=== PATIENT | male | born 1945 | race Two or more races ===

== ENCOUNTER 2024-02-21 12:07 | Inpatient (IN) | payer OTHER ==
[~2024-02-21] VITALS: Ht 167.6 cm; Wt 61.8 kg
[2024-02-21] MEDS: GLUCAGON EMERG KIT 1mg/1ml IV ONE (13:22)
[2024-02-21 13:24] LABS: Basophils # (auto) 0.1 10 ^3/uL (0-0.2); Basophils % (auto) 0.7 % (0.0-2.0); Eosinophils # (auto) 0.2 10 ^3/uL (0-0.8); Eosinophils % (auto) 2.3 % (0.0-7.0); Hematocrit 36.5 % (41.0-53.0); Hemoglobin 12.8 g/dL (13.5-17.5); Lymphocytes # (auto) 1.8 10 ^3/uL (0.4-5.4); Mean Corpuscular Hemoglobin 30.5 pg (28.0-32.0); Mean Corpuscular Hgb Conc. 35.2 g/dL (32.0-36.0); Mean Corpuscular Volume 86.9 fL (80.0-100.0); Monocytes # (auto) 0.7 10 ^3/uL (0-1.3); Monocytes % (auto) 8.7 % (0.0-12.0); Neutrophils # (auto) 4.8 10 ^3/uL (1.6-8.6); Neutrophils % (auto) 64.3 % (37.0-80.0); Platelet Count (auto) 182 10^3/uL (140-450); Red Cell Distribution Width 13.9 % (11.8-14.3); White Blood Cell 7.5 10^3/uL (4.4-10.8)
[2024-02-21] MEDS: hydrALAZINE HCL 20 MG/ML VL IV ONE (13:30)
[2024-02-21 13:33] LABS: Alanine Aminotransferase 22 U/L (7-40); Albumin 4.1 g/dL (3.2-4.8); Alkaline Phosphatase 53 U/L (46-116); Anion Gap 6 (5-15); Aspartate Aminotransferase 14 U/L (13-40); BUN/Creatinine Ratio 14.7 (10.0-20.0); Blood Urea Nitrogen 16 mg/dL (9-23); Calcium 9.9 mg/dL (8.7-10.4); Carbon Dioxide 28 mmol/L (20-31); Chloride 104 mmol/L (98-107); Glucose 201 mg/dL (74-106); Potassium 5.1 mmol/L (3.5-5.1); Sodium 138 mmol/L (136-145); Total Protein 6.7 g/dL (5.7-8.2)
[2024-02-21 13:55] VITALS: PULSE 42; RESP 12; O2SAT 98
[2024-02-21 14:19] LABS: Magnesium 1.7 mg/dL (1.6-2.6)
[2024-02-21] MEDS: MAGNESIUM SULFATE 1GM/100ML 100 ML IV ONE (15:35)
[2024-02-21 16:18] LABS: Urine Bacteria None Seen /hpf (None Seen)
[2024-02-21 16:31] LABS: Urine Blood Negative /uL (Negative); Urine Clarity Clear (Clear); Urine Color Light-Yellow (Yellow); Urine Protein, UAD Negative (Negative); Urine Specific Gravity 1.014 (1.001-1.035); Urine Urobilinogen Normal (Negative); Urine WBC <1 /hpf (0 - 3)
[2024-02-21 19:50] VITALS: PULSE 32; RESP 13; O2SAT 99
[2024-02-21] MEDS ORDERED: NITROGLYCERIN 0.4 MG SL TAB SL PRN (23:45)
[2024-02-21] MEDS ORDERED: MORPHINE SULFATE INJ 2 MG/ml SYRG IV PRN (23:45)
[2024-02-22] VITALS (9 sets, daily range): BP systolic 148–187; BP diastolic 69–87; PULSE 32–75; RESP 14–18; TEMP 97.8–98.7; O2SAT 97–100
[2024-02-22] MEDS ORDERED: DEXTROSE (50%) 50ML SYRG IV PRN (00:45)
[2024-02-22] MEDS ORDERED: ATROPINE SULF 1 MG/10ml SYR IV ONE (01:00)
[2024-02-22] MEDS: ACCU-CHEK COMFORT CURVE STRIP VI SCH (04:00)
[2024-02-22] MEDS: InsuLIN REG 1unit/0.01ml Soln (100units/ml) SC SCH (04:00)
[2024-02-22 07:05] LABS: Chloride 107 mmol/L (98-107); Potassium 5.3 mmol/L (3.5-5.1); Sodium 137 mmol/L (136-145)
[2024-02-22 07:06] LABS: Anion Gap 6 (5-15); Calcium 9.9 mg/dL (8.7-10.4); Carbon Dioxide 24 mmol/L (20-31)
[2024-02-22 07:11] LABS: BUN/Creatinine Ratio 12.7 (10.0-20.0); Blood Urea Nitrogen 14 mg/dL (9-23); Glucose 152 mg/dL (74-106)
[2024-02-22 07:16] LABS: Basophils # (auto) 0.1 10 ^3/uL (0-0.2); Basophils % (auto) 0.8 % (0.0-2.0); Eosinophils # (auto) 0.3 10 ^3/uL (0-0.8); Eosinophils % (auto) 3.7 % (0.0-7.0); Hematocrit 36.9 % (41.0-53.0); Hemoglobin 12.9 g/dL (13.5-17.5); Lymphocytes # (auto) 2.2 10 ^3/uL (0.4-5.4); Lymphocytes % (auto) 27.9 % (10.0-50.0); Mean Corpuscular Hemoglobin 30.6 pg (28.0-32.0); Mean Corpuscular Volume 87.5 fL (80.0-100.0); Monocytes # (auto) 0.7 10 ^3/uL (0-1.3); Monocytes % (auto) 8.3 % (0.0-12.0); Neutrophils # (auto) 4.7 10 ^3/uL (1.6-8.6); Neutrophils % (auto) 59.3 % (37.0-80.0); Platelet Count (auto) 178 10^3/uL (140-450); Red Blood Cells 4.22 10^6/uL (4.5-5.90); Red Cell Distribution Width 13.9 % (11.8-14.3)
[2024-02-22 09:14] LABS: INR 1.17 (0.9-1.15); Partial Thromboplastin Time 27.5 SEC (24.5-34.5); Prothrombin Time 12.3 sec (9.3-11.8)
[2024-02-22] MEDS ORDERED: ASPirin 81 mg TAB PO SCH (10:00)
[2024-02-22] MEDS: hydrALAZINE HCL 20 MG/ML VL IV PRN (15:43)
[2024-02-22] MEDS: LIDOCAINE 2%HCL (LOCAL ANESTH.) INJ 20ML MDV ONE (16:10)
[2024-02-22] MEDS: fentaNYL CITRATE 100 MCG/2 ML VL ONE (16:11)
[2024-02-22] MEDS: MIDAZOLAM HCL 2MG/2ML 2ml VIAL (1mg/ml) ONE (16:11)
[2024-02-22] MEDS: VANCOMYCIN HCL 1000 MG VL ONE ×2 (17:05→18:52)
[2024-02-22] MEDS: VANCOMYCIN 1GM/250ML 200 ML IV ONE (17:05)
[2024-02-22] MEDS: ATORVASTATIN 20 MG TAB PO SCH (21:43)
[2024-02-23] VITALS (7 sets, daily range): BP systolic 146–173; BP diastolic 62–101; PULSE 61–73; RESP 14–18; TEMP 98.2–98.8; O2SAT 95–98
[2024-02-23] MEDS ORDERED: DEXTROSE (50%) 50ML SYRG IV PRN (07:00)
[2024-02-23 08:35] LABS: Anion Gap 9 (5-15); Carbon Dioxide 24 mmol/L (20-31); Chloride 107 mmol/L (98-107); Sodium 140 mmol/L (136-145)
[2024-02-23 08:37] LABS: Calcium 9.6 mg/dL (8.7-10.4)
[2024-02-23 08:42] LABS: BUN/Creatinine Ratio 10.7 (10.0-20.0); Blood Urea Nitrogen 9 mg/dL (9-23); Glucose 107 mg/dL (74-106)
[2024-02-23 08:43] LABS: Basophils # (auto) 0.1 10 ^3/uL (0-0.2); Eosinophils # (auto) 0.2 10 ^3/uL (0-0.8); Eosinophils % (auto) 3.1 % (0.0-7.0); Hemoglobin 13.4 g/dL (13.5-17.5); Lymphocytes % (auto) 25.8 % (10.0-50.0); Mean Corpuscular Hemoglobin 30.5 pg (28.0-32.0); Mean Corpuscular Hgb Conc. 35.2 g/dL (32.0-36.0); Mean Corpuscular Volume 86.6 fL (80.0-100.0); Monocytes # (auto) 0.6 10 ^3/uL (0-1.3); Monocytes % (auto) 8.5 % (0.0-12.0); Neutrophils # (auto) 4.7 10 ^3/uL (1.6-8.6); Neutrophils % (auto) 61.6 % (37.0-80.0); Nucleated Red Blood Cells % 0.1 %; Platelet Count (auto) 178 10^3/uL (140-450); Red Blood Cells 4.38 10^6/uL (4.5-5.90); Red Cell Distribution Width 13.7 % (11.8-14.3); White Blood Cell 7.6 10^3/uL (4.4-10.8)
[2024-02-23] MEDS: ACCU-CHEK COMFORT CURVE STRIP VI SCH (13:12)
[2024-02-23] MEDS: InsuLIN REG 1unit/0.01ml Soln (100units/ml) SC SCH (13:13)
[2024-02-23] MEDS ORDERED: INSREG3 (13:26)
[2024-02-23] MEDS ORDERED: INSUINJ2 SC (13:26)
[2024-02-23] MEDS ORDERED: LISI-275 PO (13:26)
[2024-02-23] MEDS ORDERED: ATEN50TA PO (13:26)
[2024-02-23] MEDS ORDERED: METF-372 PO (13:26)
[2024-02-23] MEDS ORDERED: ATOR20TA50 PO (13:26)
[2024-02-23] MEDS ORDERED: DOXY1CAP57 PO (15:50)
[2024-02-23] MEDS ORDERED: InsuLIN REG 1unit/0.01ml Soln (100units/ml) SC SCH (22:00)
== END 2024-02-23 18:00 | disposition home or self-care (01) | DRG 242 ==
LOC: EDBD 12:07 → ER 12:12 → TELE 23:34 → TELE-WESTW 02-22 09:53
PROVIDERS: ADMIT Internal Medicine; ATTEND Internal Medicine
PROC: 0JH606Z Insertion of Pacemaker, Dual Chamber into Chest Subcutaneous Tissue and Fascia, Open Approach (ICD-10-PCS; principal; 2024-02-22)
PROC: 02H63JZ Insertion of Pacemaker Lead into Right Atrium, Percutaneous Approach (ICD-10-PCS; 2024-02-22)
PROC: 02HK3JZ Insertion of Pacemaker Lead into Right Ventricle, Percutaneous Approach (ICD-10-PCS; 2024-02-22)
PROC: B517YZZ Fluoroscopy of Left Subclavian Vein using Other Contrast (ICD-10-PCS; 2024-02-22)
DX: I44.2 Atrioventricular block, complete (principal); I50.33 Acute on chronic diastolic (congestive) heart failure; I11.0 Hypertensive heart disease with heart failure; I16.0 Hypertensive urgency; E78.5 Hyperlipidemia, unspecified; E11.9 Type 2 diabetes mellitus without complications; E87.5 Hyperkalemia; T50.995A Adverse effect of other drugs, medicaments and biological substances, initial encounter; Z79.4 Long term (current) use of insulin; Z79.84 Long term (current) use of oral hypoglycemic drugs; Z85.810 Personal history of malignant neoplasm of tongue; Y92.89 Other specified places as the place of occurrence of the external cause
CPT/HCPCS: 33208; 36012; 36415; 71045; 80048; 80053; 80061; 81001; 82962; 83036; 83735; 83880; 84132; 84443; 84484; 85025; 85610; 85730; 93005; 93306; 96365; 96375; 99152; 99291; G0378; J1815; J2250